=== PATIENT | male | born 1965 | race African-American/Black ===

== ENCOUNTER 2017-02-03 14:58 | Emergency (ER) | payer SELFPAY ==
--- NOTE | 2017-02-03 15:11 | NUR ---
PERFORMED CPR ON PT/AIRWAY MANAGEMENT
[2017-02-03 15:24] LABS: BASOPHILS 2.7 % (0-2); EOSINOPHILS 0.1 % (0-7); HEMATOCRIT 34.4 % (42.0-54.0); IMMATURE GRANULOCYTES 6.9 % (0-5); LYMPHOCYTES 18.9 % (15-50); MCH 32.4 pg (26.0-34.0); MCV 101.5 fL (80.0-100.0); MEAN PLATELET VOLUME 13.3 fL (7.4-10.4); MONOCYTES 1.6 % (2-11); NEUTROPHILS 69.8 % (40-80); RBC 3.39 10x6/uL (4.20-6.10); RDW 13.4 % (11.5-14.5); WBC 12.8 10x3/uL (4.8-10.8)
[2017-02-03 15:34] LABS: APTT 46.6 SECONDS (22.8-39.4); INR 3.23 (0.85-1.17); PROTIME 33.3 SECONDS (11.6-15.0)
[2017-02-03 16:02] LABS: ALBUMIN 0.9 g/dL (3.4-5.0); ALKALINE PHOSPHATASE 54 U/L (46-116); ALT (SGPT) 40 U/L (10-68); CALCIUM 8.1 mg/dL (8.5-10.1); CKMB 2.6 U/L (0.0-3.6); CREATINE KINASE 289 UL (21-232); CREATININE - SERUM 6.7 mg/dL (0.6-1.3); PROTEIN - SERUM 4.5 g/dL (6.4-8.2); TROPONIN-I 0.023 ng/mL (0.000-0.060); UREA NITROGEN 127 mg/dL (7-18); eGFR NON AFRICAN AMERICAN 9 mL/min (90-120)
[2017-02-03 16:14] LABS: GLUCOSE 460 mg/dL (74-106); MAGNESIUM - SERUM 5.4 mg/dL (1.8-2.4)
[2017-02-03 16:15] LABS: CALC OSMOLALITY 295 mosm/kg (275-300); CARBON DIOXIDE 9.7 mmol/L (21.0-32.0); CHLORIDE - SERUM 80 mmol/L (98-107); POTASSIUM - SERUM 7.8 mmol/L (3.5-5.1); SODIUM 116 mmol/L (136-145)
[2017-02-03 16:20] LABS: PLATELET COUNT 41 10x3/uL (130-400)
[2017-02-03 16:21] LABS: PLATELET ESTIMATE DECREASED
== END 2017-02-03 15:07 ==
LOC: D.ER 14:58
PROVIDERS: Emergency Medicine
DX: I46.9 Cardiac arrest, cause unspecified (principal); I21.09 ST elevation (STEMI) myocardial infarction involving other coronary artery of anterior wall